=== PATIENT | female | born 1960 | race Caucasian/White ===

== ENCOUNTER 2023-12-24 06:37 | Day surgery (SDC) | payer MEDICARE, OTHER, SELFPAY ==
[2023-12-12 08:06] VITALS: BMI 17.4
[2023-12-24] VITALS (8 sets, daily range): BP systolic 118–144; BP diastolic 69–82; BMI 17.4
[2023-12-24] MEDS: NORMOSOL-R 1000 IV (09:30)
[2023-12-24] MEDS: Pyridium 200 MG PO (11:24)
== END 2023-12-24 12:00 | disposition home or self-care (01) ==
LOC: SDS 06:37
PROVIDERS: ATTENDING PHYSICIAN Urology; FAMILY PHYSICIAN Family Medicine
DX: N30.10 Interstitial cystitis (chronic) without hematuria (principal); R35.0 Frequency of micturition; M62.89 Other specified disorders of muscle; N95.2 Postmenopausal atrophic vaginitis
CPT/HCPCS: 52260; 87077; 87086; 87186; J0585

== ENCOUNTER 2024-06-23 06:27 | Day surgery (SDC) | payer OTHER, SELFPAY ==
[2024-06-18 08:51] LABS: Urine Albumin Negative (Neg - Trace); Urine Bilirubin Negative (Negative); Urine Character Clear (Clear); Urine Color Yellow; Urine Glucose Negative (Negative); Urine Ketone Negative (Negative); Urine Leukocyte 1+ (Negative); Urine Nitrite Negative (Negative); Urine Occult Blood Negative (Negative); Urine Specific Gravity 1.005 (<1.030); Urine Urobilinogen Negative (Neg - 1+)
[2024-06-18 08:52] LABS: % Basophils 1.3 % (0-2); % Eosinophils 7.5 % (0-6); % Immature Granulocytes 0.4 % (0-0.5); % Lymphocytes 35.1 % (20.5-51.1); % Monocytes 10.5 % (1.7-9.3); % Neutrophils 45.2 % (42.2-75.2); Absolute Basophils 0.1 10^3/uL (0-0.2); Absolute Eosinophils 0.3 10^3/uL (0-0.7); Absolute Lymphocytes 1.6 10^3/uL (1.2-3.4); Absolute Monocytes 0.5 10^3/uL (0.1-0.6); Absolute Neutrophils 2.1 10^3/uL (1.4-6.5); Hematocrit 42.3 % (37.0-47.0); Hemoglobin 13.7 g/dL (12.0-16.0); Mean Corp Hgb Conc. 32.4 g/dL (33.0-37.0); Mean Corpuscular Hgb 28.8 pg (27.0-31.0); Mean Corpuscular Volume 88.9 fL (81.0-99.0); Mean Platelet Volume 9.5 fL (7.4-10.4); Nucleated Red Blood Cells % 0 %; Platelet Count 267 10^3/uL (130-400); Red Blood Cell Count 4.76 10^6/uL (4.20-5.40); Red Cell Dist. Width 14.6 % (11.5-14.5); White Blood Cell Count 4.6 10^3/uL (4.8-10.8)
[2024-06-18 09:04] LABS: Urine Squamous Cell >30 /LPF (Few)
[2024-06-18 09:04] LABS: Blood Urea Nitrogen 10 mg/dl (7-17); Calcium 9.2 mg/dl (8.4-10.2); Carbon Dioxide 25 mmol/L (22-30); Chloride 108 mmol/L (98-107); Glucose 80 mg/dl (70-99); Potassium 4.3 mmol/L (3.5-5.1); Sodium 142 mmol/L (135-145); eGFR > 60.00
[2024-06-18 09:06] LABS: Urine Bacteria Moderate (Negative)
[2024-06-18 09:07] LABS: Urine Red Blood Cell 0-2 /HPF (0-2); Urine White Cell 50-60 /HPF (0-5)
[2024-06-18 12:13] VITALS: BMI 17.6
--- NOTE | 2024-06-18 15:14 | PTCARENOTE ---
patients 06/18 w/ 50-60 WBC- Aubrie @ Dr. Keller office notified
--- NOTE | 2024-06-19 14:54 | PTCARENOTE ---
Abn Urine Culture + for E-Coli, Aubrie at Dr. Hall made aware.
[2024-06-23] VITALS (8 sets, daily range): BP systolic 113–143; BP diastolic 74–87; BMI 17.6
[2024-06-23] MEDS: NORMOSOL-R/PLASMALYTE-A 1000 IV (08:52)
[2024-06-23] MEDS: Pyridium 200 MG PO (10:19)
== END 2024-06-23 11:20 | disposition home or self-care (01) ==
LOC: SDS 06:27
PROVIDERS: ATTENDING PHYSICIAN Urology; FAMILY PHYSICIAN Family Medicine
DX: N30.10 Interstitial cystitis (chronic) without hematuria (principal)
CPT/HCPCS: 52260; 36415; 80048; 81003; 81015; 85025; 87086; 87088; 87186; 93005

== ENCOUNTER → 2024-11-12 11:45 | Outpatient (REF) | payer OTHER, SELFPAY | LOC: MRI 11:45 | PROVIDERS: ATTENDING PHYSICIAN Physical Medicine & Rehabilitation; FAMILY PHYSICIAN Family Medicine | DX: M54.12 Radiculopathy, cervical region (principal) | CPT/HCPCS: 72141 ==

== ENCOUNTER 2025-01-07 06:28 | Day surgery (SDC) | payer OTHER, SELFPAY | END 2025-01-07 10:50 | disposition home or self-care (01) | LOC: GI 06:28 | PROVIDERS: ATTENDING PHYSICIAN Internal Medicine | DX: Z12.11 Encounter for screening for malignant neoplasm of colon (principal); K63.89 Other specified diseases of intestine; K62.1 Rectal polyp; K52.831 Collagenous colitis | CPT/HCPCS: 45385; 45380; 88305 ==

== ENCOUNTER → 2025-01-12 15:09 | Outpatient (REF) | payer OTHER, SELFPAY ==
[2025-01-12 17:12] LABS: Blood Urea Nitrogen 17 mg/dl (7-17); Calcium 9.6 mg/dl (8.4-10.2); Carbon Dioxide 24 mmol/L (22-30); Chloride 106 mmol/L (98-107); Glucose 101 mg/dl (70-99); Potassium 4.3 mmol/L (3.5-5.1); Sodium 139 mmol/L (135-145); eGFR > 60.00
== END ==
LOC: RCS 15:09
PROVIDERS: ATTENDING PHYSICIAN Nurse Practitioner; FAMILY PHYSICIAN Family Medicine
DX: N30.10 Interstitial cystitis (chronic) without hematuria (principal)
CPT/HCPCS: 36415; 80048; 93005